=== PATIENT | female | born 1990 | race Two or more races ===

== ENCOUNTER 2017-05-05 19:41 | Emergency (ER) | payer SELFPAY ==
[2017-05-05 20:15] VITALS: BMI 28.3
[2017-05-05 20:21] VITALS: RESP 16; TEMP 97.9
[2017-05-05 21:24] LABS: BASO # 0.04 K/mm3 (0.0-2.0); BASO % 0.3 % (0.0-3.0); EOS # 0.3 (0.0-0.7); EOS % 2.6 % (1.5-5.0); GRAN # 8.35 (1.4-6.5); GRAN % 70.7 % (50.0-68.0); HEMATOCRIT 27.8 % (36.0-48.0); LYMPH # 2.6 (1.2-3.4); LYMPH % 21.8 % (22.0-35.0); MEAN CELL VOLUME 70.7 fl (80.0-105.0); MEAN CORPUSCULAR HEMOGLOBIN 20.6 pg (25.0-35.0); MEAN CORPUSCULAR HGB CONC 29.1 g/dl (31.0-37.0); MONO # 0.5 (0.1-0.6); MONO % 4.6 % (1.0-6.0); RED CELL DISTRIBUTION WIDTH 18.5 % (11.5-14.5); WHITE BLOOD COUNT 11.8 10^3/ul (4.5-11.0)
[2017-05-05 21:26] LABS: URINE BILIRUBIN NEGATIVE (NEGATIVE); URINE BLOOD NEGATIVE (NEGATIVE); URINE GLUCOSE (UA) NEGATIVE (NEGATIVE); URINE KETONE NEGATIVE (NEGATIVE); URINE LEUKOCYTE ESTERASE TRACE Leu/uL (NEGATIVE); URINE PROTEIN NEGATIVE mg/dL (<30 mg/dL); URINE UROBILINOGEN 0.2 E.U./dL (<1 E.U./dL)
[2017-05-05 21:31] LABS: ALB/GLOB RATIO 0.9 (1.1-1.8); ALKALINE PHOSPHATASE 173 U/L (38-126); ALT/SGPT 38 U/L (7-56); AST/SGOT 41 U/L (14-36); BILIRUBIN,TOTAL 0.4 mg/dL (0.2-1.3); BLOOD UREA NITROGEN 8 mg/dL (7-21); CALCIUM 9.1 mg/dL (8.4-10.5); CARBON DIOXIDE 20 mmol/L (21-33); CHLORIDE 107 mmol/L (98-107); GFR AFRICAN-AMERICAN > 60; GLUCOSE,RANDOM 99 mg/dL (70-110); POTASSIUM 3.4 mmol/L (3.6-5.0); SODIUM 137 mmol/L (132-148); TOTAL PROTEIN 7.6 g/dL (5.8-8.3); URINE APPEARANCE CLEAR (CLEAR); URINE COLOR YELLOW (YELLOW)
[2017-05-05 21:39] LABS: URINE BACTERIA FEW (NEG); URINE RBC 0 - 2 /hpf (0-2)
[2017-05-05 21:41] LABS: INR 1.04 (0.93-1.08); PARTIAL THROMBOPLASTIN TIME 23.5 Seconds (25.1-36.5)
--- NOTE | 2017-05-05 21:50 | US ---
EXAM: US After First Trimester, Transabdominal CLINICAL HISTORY: 26 years old, female; Pain; complicated by abdominal or pelvic pain; Lower; Second trimester; Gestational age or lmp: 11/13/2016; ; Additional info: Abdominal pain/ TECHNIQUE: Real-time transabdominal obstetrical ultrasound of the maternal pelvis and a second or third trimester with image documentation. COMPARISON: No relevant prior studies available. FINDINGS: Fetus: Single live intrauterine gestation. Heart rate: heart rate of 149 beats per minute. Presentation: Cephalic. Placenta: Posterior. No placenta previa or abruption. Amniotic fluid: Normal. Anatomy: No gross anomaly is appreciated. BIOMETRICS Gestational age by US: Estimated gestational age of 25 weeks 0 days by measurements. EFW: Estimated weight of 757 g. BPD: 6.1 cm, correlating with 24 weeks 5 days. HC: 23.1 cm, correlating with 25 weeks 2 days. AC: 20.3 cm, correlating with 24 weeks 6 days. FL: 4.5 cm, correlating with 25 weeks 0 days. MATERNAL: Uterus: Unremarkable. No myometrial mass. Cervix: No cervical dilatation or effacement. Adnexa: Ovaries not visualized. No adnexal masses. Free fluid: No significant free fluid. IMPRESSION: 1. Single live intrauterine gestation.
[2017-05-05 22:07] VITALS: BP 120/70; PULSE 96; O2SAT 99
--- NOTE | 2017-05-05 22:10 | ED PDOC ---
Arrival/HPI - General Chief Complaint: Abdominal Pain Time Seen by Provider: 05/05/17 19:48 Historian: Patient - History of Present Illness Narrative History of Present Illness (Text): 05/05/17 22:07 26yo female , LMP 11/13/16 present with complaint of crampy diffuse abdominal pain since this morning. She reports burning with urination 3days ago. Started having worsening pain this morning. Pain is intermittent. She came from [place] this week. States she had care while there. She denies vaginal bleeding, urinary incontinence, nausea, vomiting, nausea, vomiting, any other complaint. Past Medical History - Provider Review Nursing Documentation Reviewed: Yes - Psychiatric Hx Substance Use: No Family/Social History - Physician Review Nursing Documentation Reviewed: Yes Family/Social History: Unknown Family HX Smoking Status: Never Smoked Hx Alcohol Use: No Hx Substance Use: No Allergies/Home Meds Allergies/Adverse Reactions: Allergies No Known Allergies Allergy (Verified 05/05/17 20:12) Home Medications: Home Meds Medication Instructions Recorded Confirmed No Known Home Med 05/05/17 05/05/17 Review of Systems - Physician Review All systems were reviewed & negative as marked: Yes - Review of Systems Constitutional: Normal Eyes: Normal ENT: Normal Respiratory: Normal Cardiovascular: Normal Gastrointestinal: Abdominal Pain. absent: Constipation, Diarrhea, Nausea, Vomiting, Hematochezia, Hematemesis Genitourinary Female: Dysuria. absent: Frequency, Hematuria Musculoskeletal: Normal Skin: Normal Neurological: Normal Endocrine: Normal Hemo/Lymphatic: Normal Psychiatric: Normal Physical Exam Vital Signs Reviewed: Yes Vital Signs Temp Pulse Resp BP Pulse Ox 05/05/17 22:06 96 H 16 120/70 99 05/05/17 20:19 97.9 F 101 H 16 122/74 98 Temperature: Afebrile Blood Pressure: Normal Pulse: Regular Respiratory Rate: Normal Appearance: Positive for: Well-Appearing, Non-Toxic, Comfortable Pain Distress: None Mental Status: Positive for: Alert and Oriented X 3 - Systems Exam Head: Present: Atraumatic, Normocephalic Pupils: Present: PERRL Extroacular Muscles: Present: EOMI Conjunctiva: Present: Normal Mouth: Present: Moist Mucous Membranes Neck: Present: Normal Range of Motion Respiratory/Chest: Present: Clear to Auscultation, Good Air Exchange. No: Respiratory Distress, Accessory Muscle Use Cardiovascular: Present: Regular Rate and Rhythm, Normal S1, S2. No: Murmurs Abdomen: Present: Tenderness, Distention (Gravid abdomen), Normal Bowel Sounds. No: Peritoneal Signs, Rebound, Guarding, McBurney's Point Tender, Rovsing's Sign Present Back: Present: Normal Inspection Upper Extremity: Present: Normal Inspection. No: Cyanosis, Edema Lower Extremity: Present: Normal Inspection. No: Edema Neurological: Present: GCS=15, CN II-XII Intact, Speech Normal Skin: Present: Warm, Dry, Normal Color. No: Rashes Psychiatric: Present: Alert, Oriented x 3, Normal Insight, Normal Concentration Medical Decision Making ED Course and Treatment: 05/05/17 22:10 Pt in ED for stated history. She was having intermittent pain while in ED Lab was ordered US was ordered Case was GRISELDA Mayorga and he recommends that pt be transferred to [place] for pre term labor Case was GRISELDA Benz (OB resident) at [place]. she accepted the case under the attending Dr. Taylor. Plan was DW the pt and she agreed 05/05/17 22:15 AGE Exam Date: 05[birth year]05[birth year]17 This imaging exam was performed at [facility] EXAM: US After First Trimester, Transabdominal CLINICAL HISTORY: 26 years old, female; Pain; complicated by abdominal or pelvic pain; Lower; Second trimester; Gestational age or lmp: 11/13/2016; ; Additional info: Abdominal pain/ TECHNIQUE: Real-time transabdominal obstetrical ultrasound of the maternal pelvis and a second or third trimester with image documentation. COMPARISON: No relevant prior studies available. FINDINGS: Fetus: Single live intrauterine gestation. Heart rate: heart rate of 149 beats per minute. Presentation: Cephalic. Placenta: Posterior. No placenta previa or abruption. Amniotic fluid: Normal. Anatomy: No gross anomaly is appreciated. BIOMETRICS Gestational age by US: Estimated gestational age of 25 weeks 0 days by measurements. EFW: Estimated weight of 757 g. BPD: 6.1 cm, correlating with 24 weeks 5 days. HC: 23.1 cm, correlating with 25 weeks 2 days. AC: 20.3 cm, correlating with 24 weeks 6 days. FL: 4.5 cm, correlating with 25 weeks 0 days. MATERNAL: Uterus: Unremarkable. No myometrial mass. Cervix: No cervical dilatation or effacement. Adnexa: Ovaries not visualized. No adnexal masses. Free fluid: No significant free fluid. IMPRESSION: 1. Single live intrauterine gestation. Dictated By: Zi Blue MD Dictated Date/Time: 05/05/172148 Signed By: Zi Blue MD Date Signed: [id number] Transcribed By: FLORA Transcribe Date/Time : 05/05/172148 [id number] - Lab Interpretations Lab Results: 05/05/17 21:00 05/05/17 21:00 Lab Results 05/05/17 21:00: Sodium 137, Potassium 3.4 L, Chloride 107, Carbon Dioxide 20 L, Anion Gap 12, BUN 8, Creatinine 0.5 L, Est GFR ( Amer) > 60, Est GFR (Non -Af Amer) > 60, Random Glucose 99, Calcium 9.1, Total Bilirubin 0.4, AST 41 H, ALT 38, Alkaline Phosphatase 173 H, Total Protein 7.6, Albumin 3.5, Globulin 4.0 , Albumin/Globulin Ratio 0.9 L 05/05/17 21:00: PT 11.4, INR 1.04, APTT 23.5 L 05/05/17 21:00: WBC 11.8 H, RBC 3.93, Hgb 8.1 L, Hct 27.8 L, MCV 70.7 L, MCH 20.6 L, MCHC 29.1 L, RDW 18.5 H, Plt Count 285, MPV 9.0, Gran % 70.7 H, Lymph % (Auto) 21.8 L, Menard % (Auto) 4.6, Eos % (Auto) 2.6, Baso % (Auto) 0.3, Gran # 8.35 H, Lymph # 2.6, Menard # 0.5, Eos # 0.3, Baso # 0.04 05/05/17 21:00: Urine Color Yellow, Urine Appearance Clear, Urine pH 6.0, Ur Specific [place] <= 1.005, Urine Protein Negative, Urine Glucose (UA) Negative, Urine Ketones Negative, Urine Blood Negative, Urine Nitrate Negative, Urine Bilirubin Negative, Urine Urobilinogen 0.2, Ur Leukocyte Esterase Trace H, Urine RBC 0 - 2, Urine WBC 2 - 5, Ur Epithelial Cells 4 - 5, Urine Bacteria Few - RAD Interpretation Radiology Orders: 05/05/17 20:23 AGE [US] Stat Disposition/Present on Arrival - Present on Arrival Any Indicators Present on Arrival: No History of DVT/PE: No History of Uncontrolled Diabetes: No Urinary Catheter: No History of Decub. Ulcer: No History Surgical Site Infection Following: None - Disposition Have Diagnosis and Disposition been Completed?: Yes Diagnosis: Abdominal pain during intrauterine Disposition: Transfer [facility] [place] Disposition Time: 22:20 Condition: STABLE Referrals: PCP,NO [Primary Care Provider] - Follow up with primary
== END 2017-05-05 22:15 | disposition short-term general hospital (02) ==
LOC: EDSEX → ED 19:41
DX: O26.892 Other specified pregnancy related conditions, second trimester (principal); R10.9 Unspecified abdominal pain; Z3A.25 25 weeks gestation of pregnancy